=== PATIENT | female | born 1990 | race Two or more races ===

== ENCOUNTER 2017-11-15 13:29 | Emergency (ER) | payer BC, OTHER ==
[~2017-11-15] VITALS: Ht 162.6 cm; Wt 88.0 kg
[2017-11-15 16:35] VITALS: BP 117/79
[2017-11-15] MEDS ORDERED: KETOROLAC TROMETH 60MG/2ML VIAL IM ONE (17:00)
== END 2017-11-15 17:55 | disposition home or self-care (01) ==
LOC: ER 13:29
DX: S22.32XA Fracture of one rib, left side, initial encounter for closed fracture (principal); Z88.2 Allergy status to sulfonamides; X58.XXXA Exposure to other specified factors, initial encounter; Y93.89 Activity, other specified; Y99.8 Other external cause status; Y92.89 Other specified places as the place of occurrence of the external cause
CPT/HCPCS: 71101; 96372; 99284; J1885